=== PATIENT | female | born 1945 | race Caucasian/White ===

== ENCOUNTER 2017-02-07 13:52 | Inpatient (IN) | payer MEDICARE, BC ==
[2017-02-07] MEDS ORDERED: Ondansetron 4 MG/2 ML SDV IVPUSH ONE (15:09)
[2017-02-07] MEDS ORDERED: HYDROmorphone 0.5 MG/0.5 ML Syringe IVPUSH ONE (15:09)
--- NOTE | 2017-02-07 15:13 | EDM.PDOC ---
ED HPI GENERAL MEDICAL PROBLEM - General Chief Complaint: Abdominal Pain Stated Complaint: ABD PAIN RADIATING THROUGH BACK Time Seen by Provider: 02/07/17 15:00 Source of Information: Reports: Patient, Family History Limitations: Reports: No Limitations - History of Present Illness INITIAL COMMENTS - FREE TEXT/NARRATIVE: 71-year-old female that developed right upper quadrant pain and back pain one week ago that lasted most of the night. She had nausea and vomiting overnight as well, the following morning her urine was "bright orange". Since that time she has had a dull persistent abdominal pain, decreased appetite and intermittent chills. Over the past 12-24 hours it has gotten worse again, her abdomen feels bloated and she's become very tender in the right upper quadrant radiating to the back. She feels she has "persistent heartburn". She has never had an abdominal surgery of any kind. She is normally very healthy. - Related Data Allergies Allergy/AdvReac Type Severity Reaction Status Date / Time lisinopril AdvReac Cough Verified 12/01/13 08:18 Home Meds: Home Meds Acetaminophen [Tylenol Arthritis Pain] 2 tab PO BID 12/01/13 [History] Aspirin [Adult Low Dose Aspirin EC] 1 tab PO DAILY 12/01/13 [History] Calcium Carbonate/Vitamin D3 [Calcium 1,000 + D3 Caplet] 1 tab PO BID 12/01/13 [ History] Fish Oil/[place]-3 Fatty Acids [Fish Oil 1,000 MG] 1 cap PO BID 12/01/13 [History] Metoprolol Succinate [Toprol XL 50mg] 1 tab PO BID 12/01/13 [History] Multivitamin [Multi Vitamin Daily] 1 tab PO DAILY 12/01/13 [History] Naproxen Sodium 1 tab PO BID 12/01/13 [History] Niacin 1 tab PO DAILY 12/01/13 [History] Omeprazole 1 tab PO BID 12/01/13 [History] Simvastatin [Zocor] 1 tab PO DAILY 12/01/13 [History] Valsartan/Hydrochlorothiazide [Valsartan-Hctz 320-25 mg Tab] 1 tab PO DAILY [History] metFORMIN HCl [Metformin HCl ER] 1 tab PO BID 12/01/13 [History] Gemfibrozil [Gemfibrozil] 1 tab PO BID 02/07/17 [History] glipiZIDE [Glipizide ER] 1 tab PO DAILY 02/07/17 [History] Past Medical History - Past Health History Medical/Surgical History: Denies Medical/Surgical History Cardiovascular History: Reports: High Cholesterol, Hypertension Social & Family History - Tobacco Use Smoking Status *Q: Never Smoker Second Hand Smoke Exposure: No - Alcohol Use Days Per Week of Alcohol Use: 0 - Recreational Drug Use Recreational Drug Use: No ED ROS GENERAL - Review of Systems Review Of Systems: See Below Constitutional: Reports: Chills, Malaise, Decreased Appetite. Denies: Fever HEENT: Reports: No Symptoms Respiratory: Denies: Shortness of Breath, Cough Cardiovascular: Denies: Chest Pain Endocrine: Denies: Fatigue GI/Abdominal: Reports: Abdominal Pain, Nausea : Reports: Other (Dark urine) Musculoskeletal: Reports: Back Pain Neurological: Denies: Headache Psychiatric: Reports: No Symptoms ED EXAM, GI/ABD - Physical Exam Exam: See Below Exam Limited By: No Limitations General Appearance: Alert, Mild Distress (Looks fairly uncomfortable) Eyes: Right: Normal Appearance (No obvious jaundice, well-hydrated) Throat/Mouth: Normal Inspection Respiratory/Chest: No Respiratory Distress, Lungs Clear Cardiovascular: Regular Rate, Rhythm GI/Abdominal Exam: Distended, Tender, Other (Firm and tender in the right upper quadrant to the epigastric area, guarding. No peritoneal signs when palpating the lower abdomen) Course - Vital Signs Last Recorded V/S: Last Vital Signs Temp 98.9 F 02/08/17 04:55 Pulse 74 02/08/17 04:55 Resp 15 02/08/17 04:55 BP 141/64 H 02/08/17 04:55 Pulse Ox 97 02/08/17 04:55 - Orders/Labs/Meds Orders: Active Orders 24 hr Category Date Time Status Abdomen Ltd [US] Stat Exams 02/07/17 15:47 Taken Sodium Chloride 0.9% [Normal Saline] 1,000 ml Med 02/07/17 15:15 Active IV ASDIRECTED Medication Orders Dextrose (Glutose 15) 15 gm PO ASDIRECTED PRN PRN Reason: HYPOGLYCEMIA Dextrose/Water (Dextrose 50% In Water) 50 ml IVPUSH ASDIRECTED PRN PRN Reason: HYPOGLYCEMIA Diphenhydramine HCl (Benadryl) 25 - 50 mg PO Q4H PRN PRN Reason: Itching Diphenhydramine HCl (Benadryl) 25 - 50 mg IVPUSH Q4H PRN PRN Reason: Itching Fentanyl (Sublimaze) 10 - 30 mcg IVPUSH Q1H PRN PRN Reason: Pain Last Admin: 02/07/17 21:10 Dose: 25 mcg Glucagon (Glucagen) 1 mg IM ASDIRECTED PRN PRN Reason: HYPOGLYCEMIA Sodium Chloride (Normal Saline) 1,000 mls @ 125 mls/hr IV ASDIRECTED MANDO Last Admin: 02/08/17 04:51 Dose: 125 mls/hr Infusion: 02/07/17 23:10 Dose: 500 mls/hr Admin: 02/07/17 21:10 Dose: 500 mls/hr Infusion: 02/07/17 17:55 Dose: 125 mls/hr Admin: 02/07/17 15:55 Dose: 500 mls/hr Influenza Virus Vaccine (Fluzone High-Dose ) 180 mcg IM .ONCE ONE Stop: 02/08/17 10:01 Insulin Aspart (Novolog) 0 unit SUBCUT QID PRN; Protocol PRN Reason: MEDIUM CORRECTIONAL DOSE Last Admin: 02/07/17 21:09 Dose: 3 units Morphine Sulfate (Morphine) 1 - 3 mg IVPUSH Q1H PRN PRN Reason: Pain Nicotine (Habitrol) 14 mg TRDERM Q24H PRN PRN Reason: Withdrawal Symptoms Ondansetron HCl (Zofran) 4 mg IVPUSH Q8H PRN PRN Reason: Nausea/Vomiting Promethazine HCl (Phenergan) 12.5 - 25 mg IV Q8H PRN PRN Reason: Nausea/Vomiting Scopolamine (Transderm-Scop) 1.5 mg TOP Q72H PRN PRN Reason: Nausea Labs: Laboratory Tests 02/07/17 02/07/17 Range/Units 15:21 15:21 WBC 8.5 (4.5-11.0) K/uL RBC 3.98 (3.30-5.50) M/uL Hgb 11.1 L (12.0-15.0) g/dL Hct 33.9 L (36.0-48.0) % MCV 85 (80-98) fL MCH 28 (27-31) pg MCHC 33 (32-36) % Plt Count 225 (150-400) K/uL Neut % (Auto) 94 H (36-66) % Lymph % (Auto) 5 L (24-44) % [place] % (Auto) 1 L (2-6) % Eos % (Auto) 1 L (2-4) % Baso % (Auto) 0 (0-1) % Sodium 135 L (140-148) mmol/L Potassium 3.0 L (3.6-5.2) mmol/L Chloride 96 L (100-108) mmol/L Carbon Dioxide 24 (21-32) mmol/L Anion Gap 18.0 H (5.0-14.0) mmol/L BUN 22 H (7-18) mg/dL Creatinine 0.9 (0.6-1.0) mg/dL Est Cr Clr Drug Dosing 46.74 mL/min Estimated GFR (MDRD) > 60 (>60) Glucose 218 H (74-106) mg/dL Calcium 9.7 (8.5-10.1) mg/dL Total Bilirubin 2.5 H (0.2-1.0) mg/dL AST 130 H (15-37) U/L ALT 203 H (12-78) U/L Alkaline Phosphatase 390 H (46-116) U/L Total Protein 7.7 (6.4-8.2) g/dL Albumin 3.3 L (3.4-5.0) g/dL Globulin 4.4 H (2.3-3.5) g/dL Albumin/Globulin Ratio 0.8 L (1.2-2.2) Amylase 39 (25-115) U/L Lipase 353 (73-393) U/L Meds: Medications Generic Name Dose Route Start Last Admin Trade Name Freq PRN Reason Stop Dose Admin Dextrose 15 gm 02/07/17 19:14 Glutose 15 PO ASDIRECTED PRN HYPOGLYCEMIA Dextrose/Water 50 ml 02/07/17 19:14 Dextrose 50% In Water IVPUSH ASDIRECTED PRN HYPOGLYCEMIA Diphenhydramine HCl 25 - 50 mg 02/07/17 19:23 Benadryl PO Q4H PRN Itching Diphenhydramine HCl 25 - 50 mg 02/07/17 19:24 Benadryl IVPUSH Q4H PRN Itching Fentanyl 10 - 30 mcg 11/25/17 19:21 02/07/17 21:10 Sublimaze IVPUSH 25 mcg Q1H PRN Administration Pain Glucagon 1 mg 02/07/17 19:14 Glucagen IM ASDIRECTED PRN HYPOGLYCEMIA Sodium Chloride 1,000 mls @ 125 mls/hr 02/07/17 15:15 02/08/17 04:51 Normal Saline IV 125 mls/hr ASDIRECTED MANDO Administration Influenza Virus Vaccine 180 mcg 02/08/17 10:00 Fluzone High-Dose 2017-18 IM 02/08/17 10:01 .ONCE ONE Insulin Aspart 0 unit 02/07/17 19:14 02/07/17 21:09 Novolog SUBCUT 3 units QID PRN Administration MEDIUM CORRECTIONAL DOSE Protocol Morphine Sulfate 1 - 3 mg 02/07/17 19:20 Morphine IVPUSH Q1H PRN Pain Nicotine 14 mg 02/07/17 19:26 Habitrol TRDERM Q24H PRN Withdrawal Symptoms Ondansetron HCl 4 mg 02/07/17 19:16 Zofran IVPUSH Q8H PRN Nausea/Vomiting Promethazine HCl 12.5 - 25 mg 02/07/17 19:25 Phenergan IV Q8H PRN Nausea/Vomiting Scopolamine 1.5 mg 02/07/17 19:25 Transderm-Scop TOP Q72H PRN Nausea Discontinued Medications Generic Name Dose Route Start Last Admin Trade Name Freq PRN Reason Stop Dose Admin Hydromorphone HCl 0.5 mg 02/07/17 15:09 02/07/17 15:55 Dilaudid IVPUSH 02/07/17 15:10 0.5 mg ONETIME ONE Administration Influenza Virus Vaccine 1 each 02/08/17 15:00 Pharmacy To Dose - Influenza Vaccine IM 02/08/17 15:01 ONETIME ONE Ondansetron HCl 4 mg 02/07/17 15:09 02/07/17 15:55 Zofran IVPUSH 02/07/17 15:10 4 mg ONETIME ONE Administration - Re-Assessments/Exams Free Text/Narrative Re-Assessment/Exam: 02/07/17 15:12 An IV was started with normal saline hydration. She was given 0.5 mg of Dilaudid and 4 mg of Zofran IV. CBC, CMP, amylase and lipase were obtained. 02/07/17 17:09 Amylase and lipase were normal, CMP revealed an elevated bilirubin, AST, ALT and alkaline phosphatase. A gallbladder ultrasound was obtained which showed some gallbladder sludge, small stones but no significant inflammatory changes. The findings were discussed with Dr. Miller, he kindly accepted the patient for admission and will do a cholecystectomy tomorrow along with a liver biopsy. Admission orders were given by Dr. Miller. Departure - Departure Time of Disposition: 18:22 Disposition: Admitted As Inpatient 65 Condition: Fair Clinical Impression: Cholecystitis Abdominal pain Qualifiers: Abdominal location: right upper quadrant Qualified Code(s): R10.11 - Right upper quadrant pain - Discharge Information - My Orders Last 24 Hours: My Active Orders 02/07/17 15:15 Sodium Chloride 0.9% [Normal Saline] 1,000 ml IV ASDIRECTED 02/07/17 15:47 Abdomen Ltd [US] Stat - Assessment/Plan Last 24 Hours: My Active Orders 02/07/17 15:15 Sodium Chloride 0.9% [Normal Saline] 1,000 ml IV ASDIRECTED 02/07/17 15:47 Abdomen Ltd [US] Stat
[2017-02-07] MEDS: Sodium Chloride 0.9% 1,000 ML IV SCH ×2 (15:55→21:10)
[2017-02-07] MEDS ORDERED: 50% Dextrose in Water 50 ML Syringe IVPUSH PRN (19:14)
[2017-02-07] MEDS ORDERED: Glucose Gel 15 GM in 37.5 GM Tube PO PRN (19:14)
[2017-02-07] MEDS ORDERED: Glucagon,Human Recombinant 1 MG Vial IM PRN (19:14)
[2017-02-07] MEDS ORDERED: Ondansetron 4 MG/2 ML SDV IVPUSH PRN (19:16)
[2017-02-07] MEDS ORDERED: Morphine 4 MG/ML Syringe IVPUSH PRN (19:20)
[2017-02-07] MEDS ORDERED: fentaNYL 100 MCG/2 ML SDV IVPUSH PRN (19:21)
[2017-02-07] MEDS ORDERED: diphenhydrAMINE 25 MG Cap PO PRN (19:23)
[2017-02-07] MEDS ORDERED: diphenhydrAMINE 50 MG/ML SDV IVPUSH PRN (19:24)
[2017-02-07] MEDS ORDERED: Promethazine 25 MG/ML SDV IV PRN (19:25)
[2017-02-07] MEDS ORDERED: Scopolamine 1.5 MG Transdermal Patch TOP PRN (19:25)
[2017-02-07] MEDS ORDERED: Nicotine 14 MG/24 Hr Patch TRDERM PRN (19:26)
[2017-02-07] MEDS: Insulin Aspart 100 Units/ML 3 ML Pen SUBCUT PRN (21:09)
[2017-02-08] MEDS: Sodium Chloride 0.9% 1,000 ML IV SCH ×2 (04:51→14:28)
[2017-02-08] MEDS ORDERED: Neostigmine Methylsulfate 1 MG/ML 5 ML Syringe ONE (07:12)
[2017-02-08] MEDS ORDERED: Succinylcholine 200 MG/10 ML MDV ONE (07:12)
[2017-02-08] MEDS ORDERED: fentaNYL 250 MCG/5 ML SDV ONE ×2 (07:12→08:52)
[2017-02-08] MEDS ORDERED: Propofol 200 MG/20 ML SDV ONE (07:12)
[2017-02-08] MEDS ORDERED: Ondansetron 4 MG/2 ML SDV ONE (07:12)
[2017-02-08] MEDS ORDERED: Rocuronium 50 MG/5 ML Vial ONE (07:12)
[2017-02-08] MEDS ORDERED: Dexamethasone 4 MG/ML SDV ONE (07:12)
[2017-02-08] MEDS ORDERED: Glycopyrrolate 0.2 MG/ML 5 ML MDV ONE (07:12)
[2017-02-08] MEDS ORDERED: Bupivacaine 0.5%/EPINEPHrine 1:200,000 50 ML MDV ONE (07:34)
[2017-02-08] MEDS ORDERED: ceFAZolin 2 GM in Premix Bag 1 BAG IV ONE (08:15)
[2017-02-08] MEDS ORDERED: hydrOXYzine HCl 100 MG/2 ML SDV IM PRN (08:33)
[2017-02-08] MEDS ORDERED: Benzocaine/Cetylpyridinium/Menthol Lozenge MUCMEM PRN (08:33)
[2017-02-08] MEDS ORDERED: Zolpidem 5 MG Tab PO PRN (08:33)
[2017-02-08] MEDS ORDERED: Docusate Sodium 100 MG Cap PO PRN (08:33)
[2017-02-08] MEDS ORDERED: Bisacodyl 5 MG Tab PO PRN (08:33)
[2017-02-08] MEDS ORDERED: metroNIDAZOLE/Normal Saline 500 MG in Premix Bag 1 BAG IV ONE (08:45)
--- NOTE | 2017-02-08 08:53 | CONS ---
DATE OF SERVICE: 02/07/2017 REFERRING PHYSICIAN: CONSULTING PHYSICIAN: Barber Miller MD Consult from Dr. Santaigo. REASON FOR CONSULTATION: Abdominal pain. HISTORY OF PRESENT ILLNESS: This is a 71-year-old female who developed right upper quadrant abdominal pain about 6 to 7 days ago. This was associated with some nausea and vomiting. This is also associated with eating greasy or fatty foods. This has persisted and has reoccurred. PAST SURGICAL HISTORY: Cataract surgery. PAST MEDICAL HISTORY: Hypercholesterolemia and hypertension. SOCIAL HISTORY: She does not smoke. FAMILY HISTORY: No family history of gallbladder disease. REVIEW OF SYSTEMS: GENERAL: The patient is appropriate for her condition. HEENT: No changes. RESPIRATORY: No history of shortness of breath. CARDIOVASCULAR: No history of myocardial infarction. GASTROINTESTINAL: As above. GENITOURINARY: Dark-colored urine reported. MUSCULOSKELETAL: Back pain, which is chronic. NEUROLOGIC: No symptoms. PSYCH: No symptoms. The remainder of review of systems is reviewed and is negative. PHYSICAL EXAMINATION: VITAL SIGNS: Temperature 98.9, blood pressure 141/64, respirations 15, 97% on room air, pulse 74. GENERAL: The patient is resting comfortably. HEENT: External canals are normal. Eyes do not show any scleral icterus. NECK: Supple. LUNGS: Clear. CARDIOVASCULAR: Regular rhythm and rate. ABDOMEN: Pain with palpation of the right upper quadrant. EXTREMITIES: Full range of motion. MUSCULOSKELETAL: Strength is 5/5. NEUROLOGICAL: Oriented x3. PSYCH: No gross depression. SKIN: Shows no gross abnormalities. HEMATOLOGY/IMMUNOLOGICAL: No lymphedema noted. LABORATORY RESULTS: Show a white blood cell count of 8.5. Total bilirubin is 2.5. AST and ALT are elevated along with alk phos. IMAGING DATA: I did review the ultrasound myself, however, no ultrasound report is available at this time. ASSESSMENT: Most likely this is related to gallbladder disease. Differential includes a viral type illness. Less likely pancreatitis as there is no elevated amylase or lipase. PLAN: Will be to take the patient to the operating room, perform a laparoscopic common bile duct exploration to address any possible choledocholithiasis seen on ultrasound. In addition, we will remove her gallbladder at that time. In addition, also we will perform a liver biopsy. We also discussed risks, benefits, alternatives, and limitations including but not limited to infection, bleeding, injury to common bile duct. This seriously clearly is associated common bile duct injury and/or cystic duct leak. The possibility of open surgery and other risks are not listed here. The patient understands these risks and wished to proceed the procedure. Barber Miller MD /[id number] MTDD
[2017-02-08] MEDS ORDERED: Lactated Ringers 1,000 ML ONE (09:57)
[2017-02-08] MEDS ORDERED: FLU Vacc TS 2017-18 (65yr UP)/PF 180 MCG/0.5 ML Syringe IM ONE (10:00)
[2017-02-08] MEDS ORDERED: Ketorolac 60 MG/2 ML SDV ONE (10:06)
[2017-02-08] MEDS: Acetaminophen/HYDROcodone 325-10 MG Tab PO PRN ×3 (14:00→22:31)
[2017-02-08] MEDS: Insulin Aspart 100 Units/ML 3 ML Pen SUBCUT PRN ×2 (16:49→21:12)
[2017-02-09] MEDS: Acetaminophen/HYDROcodone 325-10 MG Tab PO PRN (07:22)
[2017-02-09] MEDS: Insulin Aspart 100 Units/ML 3 ML Pen SUBCUT PRN (08:48)
--- NOTE | 2017-02-09 11:55 | OR ---
DATE OF PROCEDURE: 02/08/2017 PROCEDURE: 1. Laparoscopic cholecystectomy with common bile duct exploration (97017). 2. Sphincteroplasty, sphincter of Oddi (89243). 3. Extraction of multiple common bile duct stones (63433). 4. Liver biopsy. COMPLICATIONS: None. RETAIL INTERIOR DESIGNER: None. PREOPERATIVE DIAGNOSIS: 1. Cholelithiasis. 2. Choledocholithiasis. 3. Cholecystitis. POSTOPERATIVE DIAGNOSES: 1. Cholelithiasis. 2. Choledocholithiasis. 3. Cholecystitis. INDICATIONS: A pleasant 71-year-old female with right lower quadrant abdominal pain and elevated bilirubin, alkaline phosphatase, and LFTs. RISKS: Risks, benefits, alternatives, limitations including, but not limited to infection, bleeding, injury to the common bile duct, cystic duct leaks, open surgery, and other risks not listed here, including cardiovascular risks, were explained to the patient, and she wished to proceed. FINDINGS: Multiple stones consistent with choledocholithiasis and inflammation of the gallbladder consistent with cholecystitis. PROCEDURE IN DETAIL: The patient was placed in supine position. A supraumbilical curvilinear incision was made. A Veress needle was used to enter the abdomen without abnormality, and a drop test was performed without abnormality. The abdomen was subsequently insufflated. An additional 10 and two 5 mm ports were entered under direct visualization. The gallbladder was retracted cephalad. Blunt dissection was then commenced, noting significant inflammation around the gallbladder itself consistent with cholecystitis. Eventually, a "clear view" of the gallbladder was obtained with a single pulsatile structure in the gallbladder and a single nonpulsatile structure entering the gallbladder. A eddi was created in the cystic duct itself. An additional eddi was created in the skin in the right upper quadrant. The introducer set was then introduced, and the Roadrunner catheter was able to be advanced into the cystic duct, common bile duct, and the bowel without difficulty. This was then exchanged for a balloon catheter, which would be used to inject contrast. The first run of contrast injection showed greater than 4 stones noted in the distal common bile duct. Using flushing techniques, two of these stones were able to be moved into the duodenum, after the sphincteroplasty was performed using approximately with 1 mL into the balloon with mild dilation. The other two stones were able to be removed using stone extraction. These were approximately 8 mm in size. Multiple images were taken with fluoroscopy and laparoscopic imaging for this technique. A completion cholangiogram was then performed, and there was no evidence of further choledocholithiasis. The common bile duct exploration was then terminated. The cystic duct was transected with a blue load stapler, and the artery was clipped respectively. The remaining one third of the gallbladder was removed off the gallbladder bed without difficulty. The abdomen was thoroughly irrigated. The gallbladder was removed via the superior port without difficulty. A liver biopsy was also performed, due to the elevated LFTs. This was done using a transcutaneous pass and then closing the defect with electrocautery. The air was removed. The irrigation material was also removed. The wounds were closed with 3-0 Vicryl and 4-0 Vicryl in an interrupted running fashion. Dermabond applied. The patient tolerated the procedure well. Barber Miller MD /[id number]
--- NOTE | 2017-02-26 14:20 | DISCH ---
DISCHARGE DIAGNOSIS: Status post laparoscopic cholecystectomy and common bile duct exploration. SUMMARY OF HOSPITAL COURSE: This is a pleasant 71-year-old female who developed right upper quadrant abdominal pain and elevated liver function tests. The patient did well postoperatively. On postop day 1, her total bilirubin and all her liver function tests had significantly improved. DISCHARGE MEDICATIONS: Please see MAR, but include [place] for pain. FOLLOW UP: With Surgery in 7 to 14 days. ACTIVITY: No lifting greater than 30 pounds x 30days.
== END 2017-02-09 09:44 | disposition home or self-care (01) | DRG 406 ==
LOC: JP.ED 13:52 → JP.ICU 17:59 → JP.MS 02-08 14:15
PROVIDERS: ADMIT Surgery; ATTEND Surgery
PROC: 0FT44ZZ Resection of Gallbladder, Percutaneous Endoscopic Approach (ICD-10-PCS; principal; 2017-02-08)
PROC: 0FQC8ZZ Repair Ampulla of Vater, Via Natural or Artificial Opening Endoscopic (ICD-10-PCS; 2017-02-08)
PROC: 0FB04ZX Excision of Liver, Percutaneous Endoscopic Approach, Diagnostic (ICD-10-PCS; 2017-02-08)
PROC: 0FC94ZZ Extirpation of Matter from Common Bile Duct, Percutaneous Endoscopic Approach (ICD-10-PCS; 2017-02-08)
DX: K80.10 Calculus of gallbladder with chronic cholecystitis without obstruction (principal); K80.40 Calculus of bile duct with cholecystitis, unspecified, without obstruction; R10.11 Right upper quadrant pain; R79.89 Other specified abnormal findings of blood chemistry; Z23 Encounter for immunization; E78.00 Pure hypercholesterolemia, unspecified; Z79.82 Long term (current) use of aspirin; Z88.8 Allergy status to other drugs, medicaments and biological substances; I10 Essential (primary) hypertension
CPT/HCPCS: 36415; 76705; 80053; 82150; 83690; 85025; 96361; 96374; 96375; 99285; J1170; J2405; J7040; 82962; 85027; 88304; 88307; 88313; 90662; 99284; A9270-GY; G0008; J0330; J0690; J1100; J1885; J2704; J2710; J3010; J7120

== ENCOUNTER 2017-04-03 06:07 | Day surgery (SDC) | payer MEDICARE, BC ==
[2017-04-03] MEDS ORDERED: Sodium Chloride 0.9% 1,000 ML IV SCH (07:00)
[2017-04-03] MEDS ORDERED: fentaNYL 100 MCG/2 ML SDV ONE (07:21)
[2017-04-03] MEDS ORDERED: Propofol 200 MG/20 ML SDV ONE (07:21)
--- NOTE | 2017-04-03 11:10 | OR ---
DATE OF PROCEDURE: 04/03/2017 PROCEDURE: Colonoscopy. FINDINGS: 1. Diverticulosis, moderate to extensive, majority in sigmoid colon. 2. Ascending colon polyp, approximately 5 mm, completely removed using cold biopsy forceps. 3. Sigmoid colon polyp, approximately 5 mm, completely removed using cold biopsy forceps. 4. Descending colon polyp, approximately 5 mm, completely removed using cold biopsy forceps. 5. No evidence of active bleeding. COMPLICATIONS: None. DIRECTOR OF SCOUT WORK: None. ANESTHESIA: MAC. RISKS: Risks, benefits, alternatives, limitations including, but not limited to infection, bleeding, and perforation were explained to the patient who wished to proceed. PROCEDURE IN DETAIL: The patient was placed in left lateral decubitus position. Digital rectal exam was performed without abnormality. The scope was introduced and advanced atraumatically to the ileocecal valve. The scope was brought back to the ascending, transverse, descending colon, and retroflexed. The patient has diverticulosis which is most likely the etiology of GI bleeding. No abnormalities on retroflexion. There was no blood at this time. Therefore, the specific etiology cannot be determined, however, this is most likely the etiology. The aforementioned polyps were identified and completely removed. The patient tolerated the procedure well. Barber Miller MD /[id number]
== END 2017-04-03 09:50 | disposition home or self-care (01) ==
LOC: JP.SDS 06:07
PROVIDERS: ATTEND Surgery
DX: Z12.11 Encounter for screening for malignant neoplasm of colon (principal); D12.4 Benign neoplasm of descending colon; K63.5 Polyp of colon; K57.30 Diverticulosis of large intestine without perforation or abscess without bleeding; I10 Essential (primary) hypertension; E11.9 Type 2 diabetes mellitus without complications; Z88.8 Allergy status to other drugs, medicaments and biological substances
CPT/HCPCS: 45380; J2704; J3010; J7040; 88305; J7030

== ENCOUNTER 2020-08-03 09:17 | Day surgery (SDC) | payer MEDICARE ==
[2020-08-03] MEDS ORDERED: Midazolam 1 MG/ML 2 ML SDV ONE (09:36)
[2020-08-03] MEDS ORDERED: fentaNYL 100 MCG/2 ML SDV ONE (09:36)
[2020-08-03] MEDS ORDERED: Propofol 200 MG/20 ML SDV ONE (09:36)
[2020-08-03] MEDS ORDERED: Sodium Chloride 0.9% 1,000 ML IV SCH (09:45)
--- NOTE | 2020-08-03 17:33 | OR ---
DATE OF PROCEDURE: SURGEON: Barber Miller MD PROCEDURE: Colonoscopy. FINDINGS: 1. Diverticulosis, extensive throughout entire colon but most concentrated in sigmoid colon. 2. Descending colon polyp, approximately 5 mm, completely removed using hot snare wire device. COMPLICATIONS: None. SOIL SCIENTIST: None. ANESTHESIA: MAC. PREOPERATIVE DIAGNOSES: Screening colonoscopy/history of colon polyps. POSTOPERATIVE DIAGNOSES: Screening colonoscopy/history of colon polyps. RISKS: Risks, benefits, alternatives, and limitations including but not limited to infection, bleeding, perforation, false positives, and false negatives were explained to the patient who wished to proceed. PROCEDURE IN DETAIL: The patient was placed in left lateral decubitus position. Digital rectal exam was performed without abnormality. Scope was introduced and advanced atraumatically to the ileocecal valve. A photo was taken of this. Scope was brought back through the ascending, transverse, and descending colon and retroflexed. No evidence of old or new blood. No masses. Diverticulosis was described as moderate-to- severe with most concentration in a classical pattern in the sigmoid colon. The polyp was identified and completely improved. No abnormalities on retroflexion. Greater than 8 minutes was spent removing the scope, and the prep was acceptable with 90% of luminal surface seen. Barber Miller MD /[id number]
== END 2020-08-03 12:05 | disposition home or self-care (01) ==
LOC: JP.SDS 09:17
PROVIDERS: ATTEND Surgery
DX: Z12.11 Encounter for screening for malignant neoplasm of colon (principal); D12.4 Benign neoplasm of descending colon; K57.30 Diverticulosis of large intestine without perforation or abscess without bleeding; I10 Essential (primary) hypertension; E11.9 Type 2 diabetes mellitus without complications; E78.00 Pure hypercholesterolemia, unspecified; Z86.010 Personal history of colon polyps; Z88.8 Allergy status to other drugs, medicaments and biological substances
CPT/HCPCS: 45385; 88305; J2250; J2704; J3010; J7030

== ENCOUNTER 2022-02-03 19:15 | Emergency (ER) | payer MEDICARE ==
[2022-02-03] MEDS ORDERED: cloNIDine 0.1 MG Tab PO ONE (19:58)
== END 2022-02-03 22:01 | disposition home or self-care (01) ==
LOC: JP.ED 19:15
DX: I16.0 Hypertensive urgency (principal); E78.00 Pure hypercholesterolemia, unspecified; E11.9 Type 2 diabetes mellitus without complications; I10 Essential (primary) hypertension; E66.9 Obesity, unspecified; Z68.35 Body mass index [BMI] 35.0-35.9, adult; Z88.8 Allergy status to other drugs, medicaments and biological substances; Z79.899 Other long term (current) drug therapy; Z79.82 Long term (current) use of aspirin; Z79.84 Long term (current) use of oral hypoglycemic drugs; Z90.49 Acquired absence of other specified parts of digestive tract
CPT/HCPCS: 36415; 80048; 85025; 99283; A9270

== ENCOUNTER 2022-12-10 07:43 | Day surgery (SDC) | payer MEDICARE ==
[~2022-12-10 07:43] MED LIST: Bupivacaine 0.5% 50 ML MDV ONE
[2022-12-10] MEDS ORDERED: Lactated Ringers 1,000 ML IV SCH (08:15)
[2022-12-10 08:47] LABS: HEMATOCRIT 36.6 % (34.3-46.0); HEMOGLOBIN 12.5 g/dL (11.2-15.5); MEAN CORPUSCULAR HEMOGLOBIN 28.5 pg (31.6-35.5); MEAN CORPUSCULAR HGB CONC 34.2 g/dL (31.6-35.5); MEAN CORPUSCULAR VOLUME 83.6 fL (81.4-99.0); RED BLOOD CELL COUNT 4.38 M/uL (3.77-5.24); WHITE BLOOD CELL COUNT,WBC 4.5 K/uL (3.2-11.0)
[2022-12-10 09:07] LABS: ALANINE AMINOTRANSFERASE,ALT 45 U/L (12-78); ALBUMIN 3.8 g/dL (3.4-5.0); ALKALINE PHOSPHATASE 80 U/L (46-116); ASPARTATE AMNIOTRANSFERASE,AST 35 U/L (15-37); BILIRUBIN TOTAL 0.5 mg/dL (0.2-1.0); BLOOD UREA NITROGEN,BUN 17 mg/dL (7-18); CALCIUM 9.2 mg/dL (8.5-10.1); CARBON DIOXIDE,CO2 23 mmol/L (21-32); CHLORIDE,CL 101 mmol/L (100-108); CREATININE 0.7 mg/dL (0.6-1.0); EST CRCL DRUG DOSING (CG) 51.18 mL/min; ESTIMATED GFR 88 mL/min (>60); GLUCOSE RANDOM 189 mg/dL (74-106); POTASSIUM,K 3.8 mmol/L (3.6-5.2); PROTEIN TOTAL,TP 7.8 g/dL (6.4-8.2); SODIUM,NA 138 mmol/L (140-148)
[2022-12-10 09:09] LABS: ANION GAP 17.8 mmol/L (5.0-14.0)
[2022-12-10] MEDS ORDERED: ceFAZolin 2 GM in Premix Bag 1 BAG IV ONE (09:15)
[2022-12-10] MEDS ORDERED: Nozin Nasal Sanitizer NASBOTH SCH (09:15)
[2022-12-10] MEDS ORDERED: Docusate Sodium 100 MG Cap PO PRN (09:30)
[2022-12-10] MEDS ORDERED: Morphine 2 MG/ML SYRINGE IV PRN (09:30)
[2022-12-10] MEDS ORDERED: Magnesium Hydroxide 400 MG/5 ML Susp 30 ML Cup PO PRN (09:30)
[2022-12-10] MEDS ORDERED: Ondansetron 4 MG/2 ML SDV IVPUSH PRN (09:30)
[2022-12-10] MEDS ORDERED: ceFAZolin 1 GM in Sodium Chloride 0.9% 50 ML IV SCH (09:30)
[2022-12-10] MEDS ORDERED: Propofol 200 MG/20 ML SDV ONE ×2 (09:38→11:42)
[2022-12-10] MEDS ORDERED: fentaNYL 100 MCG/2 ML SDV ONE (09:38)
[2022-12-10] MEDS ORDERED: Midazolam 1 MG/ML 2 ML SDV ONE (09:38)
[2022-12-10] MEDS ORDERED: Non-Formulary Medication 1 Each (Dulaglutide 1.5 MG/0.5 ML Pen) SQ SCH (09:45)
[2022-12-10] MEDS ORDERED: Lactated Ringers 1,000 ML ONE (11:07)
[2022-12-10] MEDS ORDERED: Phenylephrine 1% 10 MG/ML SDV ONE (11:37)
[2022-12-10] MEDS ORDERED: Sodium Chloride 0.9% 10 ML ONE (11:37)
[2022-12-10] MEDS: oxyCODONE 5 MG Tab PO PRN ×2 (14:30→18:39)
[2022-12-10] MEDS: Sodium Chloride 0.9% 1,000 ML IV SCH ×2 (15:02→23:43)
[2022-12-10] MEDS: Acetaminophen 325 MG Tab PO SCH ×2 (15:06→21:50)
[2022-12-10] MEDS: Ketorolac 15 MG/ML SDV IVPUSH PRN (17:02)
[2022-12-10] MEDS: ceFAZolin 1 GM in Premix Bag 1 BAG IV SCH (18:03)
[2022-12-10] MEDS: Metoprolol Tartrate 50 MG, Metoprolol Tartrate 25 MG PO SCH ×4 (18:40→21:25)
[2022-12-10] MEDS ORDERED: rOPINIRole 0.5 MG Tab PO SCH (21:00)
[2022-12-10] MEDS ORDERED: Metoprolol Tartrate 50 MG Tab PO SCH (21:00)
[2022-12-10] MEDS ORDERED: Gabapentin 100 MG Cap PO SCH (21:00)
[2022-12-10] MEDS ORDERED: atorvaSTATin 10 MG Tab PO SCH (21:00)
[2022-12-10] MEDS ORDERED: Non-Formulary Medication 1 Each (Ropinirole [Requip] 0.25 MG Tablet) PO SCH (21:00)
[2022-12-10] MEDS: Nozin Nasal Sanitizer NASBOTH SCH (21:47)
[2022-12-10] MEDS: Calcium Carbonate/Vitamin D3 1500 MG-400 Units Tab PO SCH (21:48)
[2022-12-11] MEDS: Acetaminophen 325 MG Tab PO SCH ×4 (02:53→16:32)
[2022-12-11] MEDS: ceFAZolin 1 GM in Premix Bag 1 BAG IV SCH ×2 (02:53→10:13)
[2022-12-11] MEDS: oxyCODONE 5 MG Tab PO PRN ×3 (02:56→14:27)
[2022-12-11 04:45] LABS: HEMATOCRIT 29.6 % (34.3-46.0); HEMOGLOBIN 9.8 g/dL (11.2-15.5); MEAN CORPUSCULAR HEMOGLOBIN 27.8 pg (31.6-35.5); MEAN CORPUSCULAR HGB CONC 33.1 g/dL (31.6-35.5); MEAN CORPUSCULAR VOLUME 84.1 fL (81.4-99.0); RED BLOOD CELL COUNT 3.52 M/uL (3.77-5.24); WHITE BLOOD CELL COUNT,WBC 9.3 K/uL (3.2-11.0)
[2022-12-11] MEDS: Ketorolac 15 MG/ML SDV IVPUSH PRN (07:01)
[2022-12-11] MEDS ORDERED: Pantoprazole 40 MG Tab.CR PO SCH (07:30)
[2022-12-11] MEDS: Nozin Nasal Sanitizer NASBOTH SCH (08:20)
[2022-12-11] MEDS: Calcium Carbonate/Vitamin D3 1500 MG-400 Units Tab PO SCH (08:20)
[2022-12-11] MEDS: Metoprolol Tartrate 50 MG, Metoprolol Tartrate 25 MG PO SCH ×2 (08:21)
[2022-12-11] MEDS ORDERED: Aspirin 325 MG Tab.EC PO SCH (09:00)
[2022-12-11] MEDS ORDERED: amLODIPine 5 MG Tab PO SCH (09:00)
[2022-12-11] MEDS ORDERED: Non-Formulary Medication 1 Each (Multivitamin [Multi-Vitamin Daily] 1 EACH Tablet) PO SCH (09:00)
[2022-12-11] MEDS ORDERED: Losartan 50 MG Tab PO SCH (09:00)
[2022-12-11] MEDS ORDERED: Non-Formulary Medication 1 Each (Simvastatin [Zocor] 20 MG Tablet) PO SCH (09:00)
[2022-12-11] MEDS ORDERED: Non-Formulary Medication 1 Each (Losartan [Cozaar] 100 MG Tablet) PO SCH (09:00)
[2022-12-11] MEDS ORDERED: Multivitamins with Iron/Calcium/Folic Acid/Minerals Tab PO SCH (09:00)
[2022-12-11] MEDS ORDERED: glipiZIDE 5 MG Tab.ER PO SCH (09:00)
[2022-12-11] MEDS ORDERED: Hydrochlorothiazide 25 MG Tab PO SCH (09:00)
[2022-12-11] MEDS ORDERED: Non-Formulary Medication 1 Each (Amlodipine Besylate [Norvasc] 10 MG Tablet) PO SCH (09:00)
[2022-12-11] MEDS ORDERED: Fenofibrate,Micronized 67 MG Cap PO SCH (10:00)
[2022-12-11] MEDS ORDERED: glipiZIDE 5 MG Tab PO SCH (12:00)
== END 2022-12-11 17:33 | disposition home or self-care (01) ==
LOC: JP.SDS 07:43 → UNDOADMIN 09:30 → JP.MS 09:30 → UNDODISIN 12-11 17:05 → JP.SDS 12-11 17:33
PROVIDERS: ATTEND Specialist
DX: M16.12 Unilateral primary osteoarthritis, left hip (principal); F32.0 Major depressive disorder, single episode, mild; I10 Essential (primary) hypertension; K21.9 Gastro-esophageal reflux disease without esophagitis; E78.00 Pure hypercholesterolemia, unspecified; E11.65 Type 2 diabetes mellitus with hyperglycemia; E66.9 Obesity, unspecified; Z68.35 Body mass index [BMI] 35.0-35.9, adult; Z98.49 Cataract extraction status, unspecified eye; Z98.890 Other specified postprocedural states; Z90.49 Acquired absence of other specified parts of digestive tract; Z79.84 Long term (current) use of oral hypoglycemic drugs; Z79.899 Other long term (current) drug therapy; Z79.82 Long term (current) use of aspirin; Z88.8 Allergy status to other drugs, medicaments and biological substances
CPT/HCPCS: 27130; 36415; 72170; 80053; 85027; 97110; 97161; 97165; 97530; 97535; A9270; C1713; C1776; J0690; J1885; J2250; J2371; J2704; J3010; J3490; J7030; J7120